=== PATIENT | male | born 1950 | race Caucasian/White ===

== ENCOUNTER → 2018-06-27 | Day surgery (SDC) | payer MEDICARE ==
[2018-06-24 11:13] VITALS: BMI 32.5
[~2018-06-27] MED LIST: LACTATED RINGERS 1,000 ML IV SCH; LIDOCAINE 1% 20 ML VIAL (10MG/ML) FOR IV START INTRADERMA ONE; PROPOFOL 10 MG/ML 20 ML VIAL IV ONE
[2018-06-27 07:36] VITALS: RESP 18; TEMP 97.1
[2018-06-27 07:40] LABS: Glucose,Whole Blood 135 mg/dL (75-99)
--- NOTE | 2018-06-27 09:05 | P.PCN ---
Date of Procedure: 06/27/18 Procedure(s) Performed: Procedure: Total colonoscopy. Preoperative diagnosis: Screening for neoplasia. Postoperative diagnosis: Diverticulosis with no evidence of acute diverticulitis, strictures, polyps or cancer. Preparation: HalfLytely prep. Sedation: Was provided by anesthesia. Brief clinical history: The patient is a 67-year-old male who is scheduled for this evaluation for screening for neoplasia age being his risk factor. He had abdominal and back pain which she attributed to metformin and atorvastatin which were discontinued. He had a prior colonoscopy around 12 years ago. Procedure: With the patient left lateral decubitus position and after informed consent and adequate sedation, the perianal area was inspected and it did not show any fissures or fistulas. There were no masses felt on digital rectal examination. The Olympus CFH 190L video colonoscope was then inserted in the r ectum in the usual fashion and advanced to the cecum. There were several diverticular orifices seen scattered in the sigmoid and few around the hepatic flexure and on the right side with no evidence of acute diverticulitis or strictures. No polyps or tumors were seen or any other pathology. I retroflexed the endoscope in the rectum before the endoscope was withdrawn. The patient tolerated the procedure well. Plan: The patient was reassured. Discussed dietary measures. He will follow up with you as planned and I recommended repeat exam in 10 years.
[2018-06-27 09:09] VITALS: BP 130/84; PULSE 77
== END ==
LOC: ORWHC2ENDO 07:01
DX: Z12.11 Encounter for screening for malignant neoplasm of colon (principal); K57.30 Diverticulosis of large intestine without perforation or abscess without bleeding; I10 Essential (primary) hypertension; E11.9 Type 2 diabetes mellitus without complications; J45.909 Unspecified asthma, uncomplicated; E78.5 Hyperlipidemia, unspecified; Z88.8 Allergy status to other drugs, medicaments and biological substances; Z79.899 Other long term (current) drug therapy
CPT/HCPCS: J2704; G0121

== ENCOUNTER → 2018-07-01 | Outpatient (CLI) | payer MEDICARE ==
--- NOTE | 2018-07-01 11:59 | CT ---
EXAMINATION TYPE: CT abdomen wo/w con DATE OF EXAM: 07/01/2018 COMPARISON: None HISTORY: Abdominal pain CT DLP: 1591 mGycm Automated exposure control for dose reduction was used. TECHNIQUE: Helical acquisition of images was performed from the lung bases through the top of iliac crest to include entire abdomen. CONTRAST: Performed with Oral Contrast and without and with IV Contrast, patient injected with 100 ml mL of Iso wade 300. FINDINGS: LUNG BASES: 2 mm subpleural solid pulmonary nodule seen at the left lung base on series 4 image 12 wi th 3 mm pulmonary nodule at the costophrenic angle on series 4 image 21. LIVER/GB: No significant abnormality is appreciated. PANCREAS: No significant abnormality is seen. SPLEEN: No significant abnormality is seen. ADRENALS: No significant abnormality is seen. KIDNEYS: On the unenhanced images there are 1 to 2 mm hyperdense foci within the lower pole of the ki dneys that appear nonobstructing, at least one on the right and one on the left. On the enhanced imag es there is a lobulated contour of both kidneys without suspicious mass. There is an exophytic right renal cyst measuring 9 mm. Delayed images demonstrate symmetric excretion bilaterally. BOWEL: Visualized portion of the appendix appears unremarkable. No dilated large or small bowel is s een. Few colonic diverticula are noted without pericolonic fat stranding. LYMPH NODES: No greater than 1 cm short axis lymph node is noted in the abdomen or pelvis. OSSEOUS STRUCTURES: Mild degenerative changes of the visualized lumbar spine and moderate degenerati ve changes of the visualized lower thoracic spine are present. FREE AIR: No free air is visualized. OTHER: Moderate atherosclerosis is seen of the upper abdominal aorta with severe atherosclerosis of t he distal abdominal aorta and its branches. No aneurysmal dilatation of the abdominal aorta. There is a small fat filled umbilical hernia. IMPRESSION: 1. BILATERAL PUNCTATE NONOBSTRUCTING RENAL CALCULI AND SIMPLE EXOPHYTIC SUBCENTIMETER RIGHT RENAL CYS T. 2. FEW SCATTERED COLONIC DIVERTICULI WITHOUT EVIDENCE OF ACUTE DIVERTICULITIS. 3. SEVERE ATHEROSCLEROSIS OF THE INFRARENAL ABDOMINAL AORTA AND ITS BRANCHES. 4. INCIDENTALLY NOTED LEFT BASILAR PULMONARY NODULE FOLLOW-UP FOR NODULES THIS SIZE IS RECOMMENDED WI TH CT CHEST IN 12 MONTHS.
== END | disposition home or self-care (01) ==
LOC: RADCTMAIN 08:43
PROVIDERS: ATTEND Physician Assistant
DX: N20.0 Calculus of kidney (principal); N28.1 Cyst of kidney, acquired; I70.0 Atherosclerosis of aorta; Z01.812 Encounter for preprocedural laboratory examination
CPT/HCPCS: 82565; 84520; 74170; Q9967

== ENCOUNTER → 2023-10-26 | Outpatient (CLI) | payer MEDICARE ==
--- NOTE | 2023-10-26 15:22 | CA ---
Transthoracic Echo Report Name: Ayad Ge Age: 73 Gender: M : 1950 Exam Date: 10/26/2023 08:44 Exam Location: [facility] Ht (in): 66 Wt (lb): 240 Ordering Physician: Sukumar English DO Attending/Referring Phys: Margaret Stein PAC [employer] Clerk Mellissa Brady RDCS Procedure CPT: Indications: r53.83 Other Fatigue Cardiac Hx: Technical Quality: Fair Contrast 1: Total Dose (mL): Contrast 2: Total Dose (mL): MEASUREMENTS (Male / Female) Normal Values 2D ECHO LV Diastolic Diameter PLAX 5.6 cm 4.2 - 5.9 / 3.9 - 5.3 cm LV Systolic Diameter PLAX 3.3 cm IVS Diastolic Thickness 1.1 cm 0.6 - 1.0 / 0.6 - 0.9 cm LVPW Diastolic Thickness 1.2 cm 0.6 - 1.0 / 0.6 - 0.9 cm LV Relative Wall Thickness 0.4 RV Internal Dim ED PLAX 1.8 cm LA Systolic Diameter LX 4.8 cm 3.0 - 4.0 / 2.7 - 3.8 cm LV Diastolic Volume MOD BP 67.3 cm??? 67 - 155 / 56 - 104 cm??? LV Systolic Volume MOD BP 26.0 cm??? - 58 / 19 - 49 cm??? LV Ejection Fraction MOD BP 61.3 % >= 55 % LV Cardiac Index MOD BP 1202.0 cm???/min???m??? LV Diastolic Volume MOD 4C 69.8 cm??? LV Systolic Volume MOD 4C 26.2 cm??? LV Ejection Fraction MOD 4C 62.4 % LV Cardiac Index MOD 4C 1268.7 cm???/min???m??? LV Diastolic Length 4C 7.4 cm LV Systolic Length 4C 5.9 cm LV Diastolic Volume MOD 2C 62.9 cm??? LV Systolic Volume MOD 2C 25.9 cm??? LV Ejection Fraction MOD 2C 58.8 % LV Cardiac Index MOD 2C 1076.2 cm???/min???m??? LV Diastolic Length 2C 7.2 cm LV Systolic Length 2C 6.0 cm LA Volume 41.3 cm??? 18 - 58 / 22 - 52 cm??? LA Volume Index 17.9 cm???/m??? 16 - 28 cm???/m??? M-MODE Aortic Root Diameter MM 3.2 cm LA Systolic Diameter MM 4.5 cm LA Ao Ratio MM 1.4 AV Cusp Separation MM 1.9 cm DOPPLER MV Area PHT 2.7 cm??? Mitral E Point Velocity 94.4 cm/s Mitral A Point Velocity 113.6 cm/s Mitral E to A Ratio 0.8 MV Deceleration Time 282.8 ms TR Peak Velocity 180.4 cm/s TR Peak Gradient 13.0 mmHg FINDINGS Left Ventricle Left ventricular ejection fraction is estimated at 55-60 %. Mildly increased septal wall thickness. Normal left ventricular systolic function with no obvious regional wall motion abnormalities. Left ventricular cavity size normal. Right Ventricle Normal right ventricular size and function. Right ventricular systolic pressure within normal limits. Right Atrium Normal right atrial size. Left Atrium Moderately increased left atrial diameter. Mitral Valve Structurally normal mitral valve. Mild mitral regurgitation. No mitral stenosis. Aortic Valve Trileaflet aortic valve. No aortic valve stenosis or regurgitation. Tricuspid Valve Structurally normal tricuspid valve. Trace to mild tricuspid regurgitation. Pulmonic Valve Structurally normal pulmonic valve. No pulmonic regurgitation. No pulmonic stenosis. Pericardium No pericardial or pleural effusion. Echo free space anterior to the right ventricle likely represents a fat pad. Aorta Normal size aortic root and proximal ascending aorta. CONCLUSIONS Left ventricular ejection fraction 55-60% Mildly increased left ventricle thickness Mild mitral regurgitation Trace to mild tricuspid regurgitation Previewed by: Dr. Ganga Arce DO (Electronically Signed) Final Date: 26 October 2023 15:22
== END | disposition home or self-care (01) ==
LOC: RADECHMAIN 08:14
PROVIDERS: ATTEND Family Medicine
DX: R53.83 Other fatigue (principal); E11.69 Type 2 diabetes mellitus with other specified complication; I10 Essential (primary) hypertension; I34.0 Nonrheumatic mitral (valve) insufficiency
CPT/HCPCS: 93306